=== PATIENT | male | born 2005 | race Caucasian/White ===

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

== ENCOUNTER 2023-06-03 11:12 | Emergency (ER) | payer OTHER, SELFPAY ==
[2023-06-03 11:25] VITALS: BP 152/76; PULSE 93; RESP 20; TEMP 36.3; O2SAT 100
--- NOTE | 2023-06-03 11:41 | ED.URI ---
HPI - URI/Sore Throat General Chief Complaint: Upper Respiratory Infection Stated Complaint: Sore Throat Time Seen by Provider: 06/03/23 11:30 Source: patient Mode of arrival: ambulatory Limitations: no limitations History of Present Illness HPI Narrative: Britt is a 17-year-old male patient presenting to the clinic today with complaints of a sore throat x3 days. He reports he has also had a fever 100.4. Does also have some nasal congestion. No known exposure to anyone with COVID, flu, or strep. MD elicited complaint: fever, sore throat and nasal congestion Related Data Home Medications Medication Instructions Recorded Confirmed No Home Medications 07/19/21 06/03/23 Allergies Allergy/AdvReac Type Severity Reaction Status Date / Time No Known Allergies Allergy Verified 06/03/23 11:33 Review of Systems Review of Systems: Pertinent positives per HPI. Patient denies any rash, headache, visual changes, dizziness, cough, shortness of breath, chest pain, palpitations, nausea, vomiting, diarrhea, constipation, abdominal pain, or any urinary issues. PMFSH Social History Social History Smoking status: Current every day smoker Tobacco type: e-cigarettes/vaping Alcohol intake: never Comments At the time of my signature, I reviewed and agree with the nursing past medical, surgical, social, and family history. There is no relevant family history pertinent to the patient complaint. Exam Narrative: General: Well-developed, well nourished, in no apparent distress Head: Normocephalic, atraumatic Eyes: Pupils equally round and reactive to light bilaterally, EOM intact, sclera and conjunctive clear, no discharge, lids normal Ears: TMs intact and clear, ear canals clear, no drainage, grossly hearing normal. Nose: Nares patent, clear nasal discharge, no inflammation, no sinus tenderness. Mouth: Oral pharynx red with bilateral tonsillar enlargement right greater than left, uvula midline, no exudate noted, without lesions or masses, good dentition, MMM. Neck: Supple, trachea midline, enlargement of anterior cervical nodes, no thyroid masses or goiter palpable. Cardio: Regular rate and rhythm, s1 and s2 normal, no murmur appreciated. Resp: Clear to auscultation bilaterally, no rhonchi, rales, wheezing or rubs Course Course Emergency Course: Portions of this record may have been created with voice recognition software. Level of Care: Express Care Visit Vital Signs Vital signs: Vital Signs Temperature 36.3 C L 06/03/23 11:25 Pulse Rate 93 06/03/23 11:25 Respiratory Rate 20 06/03/23 11:25 Blood Pressure 152/76 H 06/03/23 11:25 Pulse Oximetry 100 06/03/23 11:25 Oxygen Delivery Room Air 06/03/23 11:25 Temperature 36.3 C L 06/03/23 11:25 Pulse Rate 93 06/03/23 11:25 Respiratory Rate 20 06/03/23 11:25 Blood Pressure 152/76 H 06/03/23 11:25 Pulse Oximetry 100 06/03/23 11:25 Oxygen Delivery Room Air 06/03/23 11:25 Vital signs reviewed MDM - URI/Sore Throat MDM Narrative Medical decision making narrative: At the time of visit patient is resting comfortably on exam table. Right tonsil is twice the size of the left tonsil. Uvula is midline. Strep screen and mono was negative. I suspect patient has viral tonsillitis/pharyngitis. Supportive measures were discussed with the patient and the mother they voiced understanding discharge instructions and agrees to treatment plan. Differential Diagnosis Differential diagnosis: Likely upper respiratory infection, otitis media, sinusitis, viral infection, bronchitis, influenza, pharyngitis and other (COVID) Lab Data Labs: Strep Screen Presumptive Negative *(Reference Range: Negative)* Discharge Plan Discharge Clinical Impression: Pharyngitis Patient Disposition: Home, Self-Care Condition: Stabl
== END 2023-06-03 11:55 | disposition home or self-care (01) ==
PROVIDERS: Emergency Provider Nurse Practitioner Family
DX: J02.9 Acute pharyngitis, unspecified (principal); F17.290 Nicotine dependence, other tobacco product, uncomplicated
CPT/HCPCS: 36416; 86308; 87081; 87880; 99213; G0463